=== PATIENT | female | born 1950 | race Caucasian/White ===

== ENCOUNTER 2022-06-10 13:52 | Inpatient (IN) | payer MEDICARE ==
[2022-06-10 17:10] LABS: Appearance,Urine Cloudy (Clear); Bacteria,Urine Occasional /hpf; Bilirubin,Urine Negative (Negative); Blood,Urine Negative (Negative); Color,Urine Yellow; Glucose,Urine (UA) Negative (Negative); Hyaline Casts,Urine 1 /lpf (0-2); Ketones,Urine 2+ (Negative); Leukocyte Esterase,Urine Moderate (Negative); Mucus,Urine Rare /hpf; Nitrite,Urine Negative (Negative); Protein,Urine 1+ (Negative); RBC,Urine 1 /hpf (0-5); Specific Gravity,Urine 1.027 (1.001-1.035); Squamous Epithelial Cell,Urine 8 /hpf (0-4); Urobilinogen,Urine <2.0 mg/dL (<2.0); WBC,Urine 16 /hpf (0-5)
[2022-06-10] MEDS ORDERED: MORPHINE SULFATE 4 MG/ML SYRINGE IV STA (18:56)
[2022-06-10] MEDS ORDERED: ONDANSETRON 4 MG/2 ML VIAL IVP STA (18:56)
[2022-06-10] MEDS ORDERED: SODIUM CHLORIDE 0.9% 1,000 ML IV STA (18:56)
--- NOTE | 2022-06-10 20:01 | ED ---
Abdominal Pain HPI - General Chief Complaint: Abdominal Pain Stated Complaint: ABD PAIN Time Seen by Provider: 06/10/22 18:49 Source: patient Mode of arrival: ambulatory Limitations: no limitations - History of Present Illness Initial Comments: Patient is a 71-year-old female presenting with chief complaint of abdominal pain. Patient has history of pancreatitis, states that this pain feels similar to previous episodes. Pain started last night, she attempted to just take Motrin at home and try not to eat or drink, however the pain has become intoler able. She admits to some nausea and no vomiting. No diarrhea, hematochezia, melena. No fever or chills. No chest pain or shortness of breath. No palpitations or weakness. - Related Data Allergies Allergy/AdvReac Type Severity Reaction Status Date / Time Latex, Natural Rubber Allergy Unknown Verified 06/10/22 15:15 Penicillins Allergy Unknown Verified 06/10/22 15:15 Review of Systems ROS Statement: Those systems with pertinent positive or pertinent negative responses have been documented in the HPI. ROS Other: All systems not noted in ROS Statement are negative. Past Medical History Past Medical History: Hyperlipidemia, Hypertension Additional Past Medical History / Comment(s): pancreatitis History of Any Multi-Drug Resistant Organisms: None Reported Past Surgical History: Appendectomy, Orthopedic Surgery Past Psychological History: No Psychological Hx Reported Smoking Status: Former smoker Past Alcohol Use History: Daily Past Drug Use History: None Reported General Exam Limitations: no limitations General appearance: alert, in no apparent distress Head exam: Present: atraumatic, normocephalic, normal inspection Eye exam: Present: normal appearance, EOMI. Absent: scleral icterus, periorbital swelling Neck exam: Present: normal inspection Respiratory exam: Present: normal lung sounds bilaterally. Absent: respiratory distress, wheezes, rales, rhonchi, stridor Cardiovascular Exam: Present: regular rate, normal rhythm, normal heart sounds. Absent: systolic murmur, diastolic murmur, rubs, gallop, clicks GI/Abdominal exam: Present: soft, tenderness, normal bowel sounds. Absent: distended, guarding, rebound, rigid Neurological exam: Present: alert, oriented X3, CN II-XII intact Psychiatric exam: Present: normal affect, normal mood Skin exam: Present: warm, dry, intact, normal color. Absent: rash Course Vital Signs 06/10/22 15:12 Temperature 97.8 F Pulse Rate 82 Respiratory 16 Rate Blood Pressure 153/97 O2 Sat by Pulse 94 L Oximetry Medical Decision Making - Medical Decision Making Patient is a 71-year-old female history of pancreatitis presenting with chief complaint of epigastric pain that began last night. On examination there is tenderness on palpation of the epigastric region. Lab work shows amylase of 585 and lipase of 2047. No leukocytosis or anemia. Coags are WNL. Electrolytes are WNL. CT shows mild fat stranding around the pancreatic head suggestive of pancreatitis. No dilated ducts. Urine shows moderate leukocytes, 16 WBC, 8 squamous epithelial cells with occasional bacteria. This may be contaminated, sent for culture, patient is not having any dysuria, hematuria, flank pain, urgency, frequency, fever, chills. I spoke with Dr. Dunne who agreed to admit the patient. I discussed this plan with the patient, she was agreeable. Have consulted GI. Discussed this case with my attending Dr. Bosch. - Lab Data Result diagrams: 06/10/22 20:40 06/10/22 20:40 Lab Results 06/10/22 06/10/22 06/10/22 Range/Units 15:16 20:40 20:40 WBC 8.9 (3.8-10.6) k/uL RBC 4.77 (3.80-5.40) m/uL Hgb 14.9 (11.4-16.0) gm/dL Hct 44.4 (34.0-46.0) % MCV 93.2 (80.0-100.0) fL MCH 31.3 (25.0-35.0) pg MCHC 33.5 (31.0-37.0) g/dL RDW 12.9 (11.5-15.5) % Plt Count 237 (150-450) k/uL MPV 7.5 Neutrophils % 70 % Lymphocytes % 18 % Monocytes % 7 % Eosinophils % 2 % Basophils % 1 % Neutrophils # 6.2 (1.3-7.7) k/uL Lymphocytes # 1.6 (1.0-4.8) k/uL Monocytes # 0.7 (0-1.0) k/uL Eosinophils # 0.1 (0-0.7) k/uL Basophils # 0.1 (0-0.2) k/uL PT 10.4 (9.0-12.0) sec INR 1.0 (<1.2) APTT 23.7 (22.0-30.0) sec Sodium (137-145) mmol/L Potassium (3.5-5.1) mmol/L Chloride (98-107) mmol/L Carbon Dioxide (22-30) mmol/L Anion Gap mmol/L BUN (7-17) mg/dL Creatinine (0.52-1.04) mg/dL Est GFR (CKD-EPI)AfAm (>60 ml/min/1.73 sqM) Est GFR (CKD-EPI)NonAf (>60 ml/min/1.73 sqM) Glucose (74-99) mg/dL Plasma Lactic Acid Noah (0.7-2.0) mmol/L Calcium (8.4-10.2) mg/dL Total Bilirubin (0.2-1.3) mg/dL AST (14-36) U/L ALT (4-34) U/L Alkaline Phosphatase (38-126) U/L Troponin I (0.000-0.034) ng/mL Total Protein (6.3-8.2) g/dL Albumin (3.5-5.0) g/dL Amylase (30-110) U/L Lipase (23-300) U/L Urine Color Yellow Urine Appearance Cloudy H (Clear) Urine pH 6.0 (5.0-8.0) Ur Specific [place] 1.027 (1.001-1.035) Urine Protein 1+ H (Negative) Urine Glucose (UA) Negative (Negative) Urine Ketones 2+ H (Negative) Urine Blood Negative (Negative) Urine Nitrite Negative (Negative) Urine Bilirubin Negative (Negative) Urine Urobilinogen <2.0 (<2.0) mg/dL Ur Leukocyte Esterase Moderate H (Negative) Urine RBC 1 (0-5) /hpf Urine WBC 16 H (0-5) /hpf Ur Squamous Epith Cells 8 H (0-4) /hpf Urine Bacteria Occasional H (None) /hpf Hyaline Casts 1 (0-2) /lpf Urine Mucus Rare H (None) /hpf 06/10/22 06/10/22 06/10/22 Range/Units 20:40 20:40 20:40 WBC (3.8-10.6) k/uL RBC (3.80-5.40) m/uL Hgb (11.4-16.0) gm/dL Hct (34.0-46.0) % MCV (80.0-100.0) fL MCH (25.0-35.0) pg MCHC (31.0-37.0) g/dL RDW (11.5-15.5) % Plt Count (150-450) k/uL MPV Neutrophils % % Lymphocytes % % Monocytes % % Eosinophils % % Basophils % % Neutrophils # (1.3-7.7) k/uL Lymphocytes # (1.0-4.8) k/uL Monocytes # (0-1.0) k/uL Eosinophils # (0-0.7) k/uL Basophils # (0-0.2) k/uL PT (9.0-12.0) sec INR (<1.2) APTT (22.0-30.0) sec Sodium 141 (137-145) mmol/L Potassium 3.9 (3.5-5.1) mmol/L Chloride 102 (98-107) mmol/L Carbon Dioxide 23 (22-30) mmol/L Anion Gap 16 mmol/L BUN 13 (7-17) mg/dL Creatinine 0.67 (0.52-1.04) mg/dL Est GFR (CKD-EPI)AfAm >90 (>60 ml/min/1.73 sqM) Est GFR (CKD-EPI)NonAf 89 (>60 ml/min/1.73 sqM) Glucose 87 (74-99) mg/dL Plasma Lactic Acid Noah 1.2 (0.7-2.0) mmol/L Calcium 9.2 (8.4-10.2) mg/dL Total Bilirubin 1.5 H (0.2-1.3) mg/dL AST 26 (14-36) U/L ALT 11 (4-34) U/L Alkaline Phosphatase 55 (38-126) U/L Troponin I <0.012 (0.000-0.034) ng/mL Total Protein 8.0 (6.3-8.2) g/dL Albumin 4.9 (3.5-5.0) g/dL Amylase 585 H* (30-110) U/L Lipase 2047 H (23-300) U/L Urine Color Urine Appearance (Clear) Urine pH (5.0-8.0) Ur Specific [place] (1.001-1.035) Urine Protein (Negative) Urine Glucose (UA) (Negative) Urine Ketones (Negative) Urine Blood (Negative) Urine Nitrite (Negative) Urine Bilirubin (Negative) Urine Urobilinogen (<2.0) mg/dL Ur Leukocyte Esterase (Negative) Urine RBC (0-5) /hpf Urine WBC (0-5) /hpf Ur Squamous Epith Cells (0-4) /hpf Urine Bacteria (None) /hpf Hyaline Casts (0-2) /lpf Urine Mucus (None) /hpf Disposition Clinical Impression: Pancreatitis Disposition: ADMITTED IP TO THIS [facility] Condition: Fair Time of Disposition: 22:40 Decision to Admit Reason: Admit from EC Decision Date: 06/10/22 Decision Time: 22:40
[2022-06-10] MEDS: LACTATED RINGERS 1,000 ML IV SCH ×2 (20:20→22:51)
[2022-06-10 21:20] LABS: Basophils # (A) 0.1 k/uL (0-0.2); Basophils % (A) 1 %; Eosinophils # (A) 0.1 k/uL (0-0.7); Eosinophils % (A) 2 %; HCT 44.4 % (34.0-46.0); HGB 14.9 gm/dL (11.4-16.0); Lymphocytes # (A) 1.6 k/uL (1.0-4.8); Lymphocytes % (A) 18 %; MCH 31.3 pg (25.0-35.0); MCHC 33.5 g/dL (31.0-37.0); MCV 93.2 fL (80.0-100.0); Mean Platelet Volume 7.5; Monocytes # (A) 0.7 k/uL (0-1.0); Monocytes % (A) 7 %; Neutrophils # (A) 6.2 k/uL (1.3-7.7); Neutrophils % (A) 70 %; Platelet Count 237 k/uL (150-450); RBC 4.77 m/uL (3.80-5.40); RDW 12.9 % (11.5-15.5); WBC 8.9 k/uL (3.8-10.6)
[2022-06-10 21:31] LABS: ALT 11 U/L (4-34); AST 26 U/L (14-36); African American GFR (CKD) >90 (>60 ml/min/1.73 sqM); Albumin 4.9 g/dL (3.5-5.0); Alkaline Phosphatase 55 U/L (38-126); Anion Gap 16 mmol/L; Blood Urea Nitrogen 13 mg/dL (7-17); Calcium 9.2 mg/dL (8.4-10.2); Carbon Dioxide 23 mmol/L (22-30); Chloride 102 mmol/L (98-107); Glucose 87 mg/dL (74-99); Non-African American GFR(CKD) 89 (>60 ml/min/1.73 sqM); Potassium 3.9 mmol/L (3.5-5.1); Sodium 141 mmol/L (137-145); Total Bilirubin 1.5 mg/dL (0.2-1.3)
[2022-06-10 21:34] LABS: Partial Thromboplastin Time 23.7 sec (22.0-30.0); Prothrombin Time 10.4 sec (9.0-12.0)
[2022-06-10 21:47] LABS: Amylase 585 U/L (30-110); Lipase 2047 U/L (23-300)
--- NOTE | 2022-06-10 22:34 | CT ---
EXAMINATION TYPE: CT abdomen pelvis w con DATE OF EXAM: 06/10/2022 COMPARISON: None HISTORY: Epigastric pain CT DLP: 1390.2 mGycm Automated exposure control for dose reduction was used. CONTRAST: Performed with IV Contrast, patient injected with 100cc mL of Isovue 300. Images obtained from the diaphragm to the floor the pelvis with IV contrast. Lung bases show some patchy atelectasis. No pleural effusion. Heart size is top normal. No pericardia l effusion. Liver and spleen are intact. The stomach is intact. No pancreatic mass. There is some minimal fat str anding around the head of the pancreas. The bile ducts are not dilated. Gallbladder appears normal. There is no adrenal mass. Kidneys show satisfactory contrast opacification. No hydronephrosis. Ureter s are not dilated. No retroperitoneal adenopathy. Abdominal aorta is atheromatous. Bladder distends s moothly. No inguinal hernia. No free fluid in the pelvis. No evidence of pelvic mass. Uterus is anteverted. There is no mesenteric edema. No ascites or free air. No sign of a bowel obstruction. Appendix not cl early seen. No significant appendix. The lumbar vertebrae have normal alignment. No compression fract ure. There is vacuum disc at L2-3 and L3-4. The bony pelvis is intact. The hip joints are intact. The re is hypertrophic acetabular spur formation and spurring on the femoral heads. IMPRESSION: There is some mild fat stranding around the pancreatic head suggestive of pancreatitis. No dilated du cts. Patchy atelectasis at the lung bases. Mild hip joint osteoarthritis.
[2022-06-10] MEDS ORDERED: NALOXONE 0.4 MG/ML 1 ML VIAL IV PRN (22:50)
[2022-06-10] MEDS: HYDROmorphone 1 MG/ML 1 ML SYRINGE IVP PRN (23:41)
[2022-06-11 05:45] LABS: Basophils % (A) 0 %; Eosinophils # (A) 0.1 k/uL (0-0.7); Eosinophils % (A) 1 %; HCT 39.7 % (34.0-46.0); Lymphocytes # (A) 0.9 k/uL (1.0-4.8); Lymphocytes % (A) 9 %; MCH 31.1 pg (25.0-35.0); MCHC 32.7 g/dL (31.0-37.0); MCV 95.1 fL (80.0-100.0); Mean Platelet Volume 7.4; Monocytes # (A) 0.8 k/uL (0-1.0); Monocytes % (A) 7 %; Neutrophils # (A) 8.3 k/uL (1.3-7.7); Neutrophils % (A) 81 %; Platelet Count 231 k/uL (150-450); RBC 4.18 m/uL (3.80-5.40); RDW 13.3 % (11.5-15.5); WBC 10.2 k/uL (3.8-10.6)
[2022-06-11 06:08] LABS: ALT 10 U/L (4-34); AST 22 U/L (14-36); African American GFR (CKD) >90 (>60 ml/min/1.73 sqM); Albumin 4.2 g/dL (3.5-5.0); Alkaline Phosphatase 49 U/L (38-126); Anion Gap 13 mmol/L; Blood Urea Nitrogen 11 mg/dL (7-17); Calcium 8.1 mg/dL (8.4-10.2); Carbon Dioxide 24 mmol/L (22-30); Chloride 103 mmol/L (98-107); Glucose 91 mg/dL (74-99); Lipase 679 U/L (23-300); Non-African American GFR(CKD) >90 (>60 ml/min/1.73 sqM); Potassium 4.1 mmol/L (3.5-5.1); Sodium 140 mmol/L (137-145); Total Bilirubin 1.3 mg/dL (0.2-1.3); Total Protein 6.7 g/dL (6.3-8.2)
[2022-06-11 06:20] LABS: Amylase 316 U/L (30-110)
[2022-06-11] MEDS: ONDANSETRON 4 MG/2 ML VIAL IVP PRN ×2 (07:01→18:12)
[2022-06-11] MEDS: LACTATED RINGERS 1,000 ML IV SCH ×10 (07:48→14:20)
[2022-06-11] MEDS ORDERED: METOCLOPRAMIDE 5 MG/ML 2 ML VIAL IVP STA (08:29)
[2022-06-11] MEDS ORDERED: ACETAMINOPHEN TAB 325 MG TAB PO STA (10:26)
[2022-06-11] MEDS: HYDROmorphone 1 MG/ML 1 ML SYRINGE IVP PRN ×3 (14:22→21:15)
--- NOTE | 2022-06-11 16:20 | P.CONS ---
History of Present Illness - Reason for Consult Consult date: 06/11/22 Pancreatitis Requesting physician: Wendy Saenz - Chief Complaint Epigastric, right upper quadrant pain - History of Present Illness This a pleasant 71-year-old female who presented to the emergency department with complaints of epigastric and right upper quadrant pain similar to her previous episode of pancreatitis. Pain started a couple days ago and is associated with nausea and vomiting. Patient states she had several episodes of dry heaves this morning. Patient rates pain about an 8 in the epigastric region. Patient first diagnosed in January 2021 with pancreatitis, states that she has pancreatic divisum. Initially she was following with Lars Lai however has switched over to Dr. Beauchamp. On presentation patient had a amylase of 585 now down to 316, lipase 2046 now down to 679. Patient states pain is just mildly improved. Nausea vomiting better since Zofran was added. Gastroenterology was consulted for acute pancreatitis. Patient denies any al cohol use, no new medications. Labs: WBC 10.2 hemoglobin 13 hematocrit 39 platelet count 231,000 INR 1.0 sodium 140 potassium 4.1 BUN 11 creatinine 0.6 total bilirubin 1.3 AST 22 ALT 10 alkaline phosphatase [address] abdomen and pelvis with IV contrast report some mild fat stranding around the pancreatic head suggestive of pancreatitis. No dilated ducts. Patchy atelectasis at the lung bases. Mild hip joint osteoarthritis Review of Systems REVIEW OF SYSTEMS: CARDIOPULMONARY: No chest pain or shortness of breath. Gastrointestinal: Burning epigastric and right upper quadrant pain, associated with nausea and vomiting. No hematemesis, coffee-ground emesis. No rectal bleeding, or melena. GENITOURINARY: No dysuria or hematuria. MUSCULOSKELETAL: Reports normal range of motion., Joint pain. SKIN: No rashes. No jaundice. ENDOCRINE: No chills, fevers. No excessive weight gain or loss. No polydipsia or polyuria. PSYCHIATRIC: Unremarkable. NEUROLOGY: No change in mental status. Denies dizziness, headache. ENT: Vision unremarkable. CONSTITUTIONAL: No recent weight loss. No fever, chills, night sweats. Past Medical History Past Medical History: Hyperlipidemia, Hypertension Additional Past Medical History / Comment(s): pancreatitis History of Any Multi-Drug Resistant Organisms: None Reported Past Surgical History: Appendectomy, Orthopedic Surgery Past Psychological History: No Psychological Hx Reported Smoking Status: Former smoker Past Alcohol Use History: Daily Past Drug Use History: None Reported Medications and Allergies Home Medications Medication Instructions Recorded Confirmed Type Alendronate Sodium [Fosamax] 70 mg PO TH 06/11/22 06/11/22 History Metoprolol Succinate (ER) [Toprol 50 mg PO DAILY 06/11/22 06/11/22 History Xl] Omeprazole 20 mg PO DAILY 06/11/22 06/11/22 History Simvastatin [Zocor] 40 mg PO HS 06/11/22 06/11/22 History Allergies Allergy/AdvReac Type Severity Reaction Status Date / Time Latex, Natural Rubber Allergy Unknown Verified 06/11/22 07:35 Penicillins Allergy Rash/Hives Verified 06/11/22 07:35 Physical Exam Vitals: Vital Signs Temp Pulse Resp BP Pulse Ox 06/11/22 10:19 16 06/11/22 09:10 98.2 F 68 16 135/69 98 06/11/22 02:15 69 14 95 06/10/22 23:40 80 16 140/82 94 L 06/10/22 15:12 97.8 F 82 16 153/97 94 L Intake and Output 06/10/22 06/11/22 06/11/22 22:59 06:59 14:59 Other: Weight 81.647 kg General appearance: The patient is alert, oriented, appears in no acute distress. HET: Head is normocephalic and atraumatic. Conjunctiva pink. Sclera anicteric. Neck: Supple without lymphadenopathy. Trachea midline. Heart: S1 S2. Regular rate and rhythm. Lungs: Clear to auscultation. Abdomen: Soft, right upper quadrant and epigastric moderate tenderness to palpation, nondistended with bowel sounds. No guarding or rigidity. Skin: No rashes. No jaundice. Extremities: Normal skin color and turgor. No pedal edema. Neurological: No focal deficits. Alert and oriented x3. Results CBC & Chem 7: 06/11/22 05:03 06/11/22 05:03 Labs: Abnormal Lab Results - Last 24 Hours (Table) 06/10/22 06/10/22 06/11/22 Range/Units 15:16 20:40 05:03 Neutrophils # 8.3 H (1.3-7.7) k/uL Lymphocytes # 0.9 L (1.0-4.8) k/uL Calcium (8.4-10.2) mg/dL Total Bilirubin 1.5 H (0.2-1.3) mg/dL Amylase 585 H* (30-110) U/L Lipase 2047 H (23-300) U/L Urine Appearance Cloudy H (Clear) Urine Protein 1+ H (Negative) Urine Ketones 2+ H (Negative) Ur Leukocyte Esterase Moderate H (Negative) Urine WBC 16 H (0-5) /hpf Ur Squamous Epith Cells 8 H (0-4) /hpf Urine Bacteria Occasional H (None) /hpf Urine Mucus Rare H (None) /hpf 06/11/22 Range/Units 05:03 Neutrophils # (1.3-7.7) k/uL Lymphocytes # (1.0-4.8) k/uL Calcium 8.1 L (8.4-10.2) mg/dL Total Bilirubin (0.2-1.3) mg/dL Amylase 316 H* (30-110) U/L Lipase 679 H (23-300) U/L Urine Appearance (Clear) Urine Protein (Negative) Urine Ketones (Negative) Ur Leukocyte Esterase (Negative) Urine WBC (0-5) /hpf Ur Squamous Epith Cells (0-4) /hpf Urine Bacteria (None) /hpf Urine Mucus (None) /hpf Microbiology - Last 24 Hours (Table) 06/10/22 15:16 Urine Culture - Preliminary Urine,Voided CT scan - abdomen: report reviewed Assessment and Plan (1) Pancreatitis Narrative/Plan: 71-year-old female who presented to the emergency department with the severe epigastric right upper quadrant pain associated with nausea vomiting with a hi story of pancreatitis diagnosed in January 2021. Patient came in for increased pain nausea and vomiting. First diagnosed with pancreatitis in January 2021 seen at [facility] at that time. She was told that it was due to pancreatic divisum. She has not had any further episodes until this presentation. She denies any history of alcohol abuse, no new medications. Now following with Dr. Beauchamp in the outpatient setting. Pancreatitis likely related to pancreatic divisum. Continue heavy hydration, pain medication and antiemetics. Current Visit: Yes Status: Acute Code(s): K85.90 - ACUTE PANCREATITIS WITHOUT NECROSIS OR INFECTION, UNSP SNOMED Code(s): 23290151 Plan: 1. Continue symptomatic and supportive care 2. Heavy IV hydration 3. Nothing by mouth with ice chips 4. Continue pain management 5. Antiemetics as needed 6. Daily CMP, lipase 7. Encourage ambulation 8. Protonix for GI prophylaxis Thank you for this consultation, we will continue to follow. Dr. Marcella Beauchamp I agree with the dictator's note, documented as a scribe by Priscilla Pérez.
[2022-06-11] MEDS ORDERED: TRIMETHOBENZAMIDE 100 MG/ML 2 ML VIAL IM PRN (16:39)
--- NOTE | 2022-06-11 16:43 | P.HPIM ---
History of Present Illness H&P Date: 06/11/22 This is a 71 year old female with medical history of hypertension, hyperlipidemia, former smoker. She does report drinking a few beers occasionally during the week. She had an episode of pancreatitis in January of 2021 and was told it was pancreatic divisum. She reports drinking a few shots of tequila last night. She began having significant abdominal pain epigastric and reports band like radiation around to the back. On admission total bili was found to be 1.5 which has improved to 1.3. Amylase elevated at 585, lipase 2046 which is improving with IV hydration and NPO diet. Will monitor amylase and lipase trends and continue with pain management and antiemetics. She did require dose of reglan this morning in addition to zofran which she states helped. On follow up with family at bedside patient denies alcohol use. Patient had CT abdomen which shows mild fat stranding around pancreatic head, GI services has been placed on consultation for further recommendations. REVIEW OF SYSTEMS: CONSTITUTIONAL: No fever, no malaise, no fatigue. HEENT: No recent visual problems or hearing problems. Denied any sore throat. CARDIOVASCULAR: No chest pain, orthopnea, PND, no palpitations, no syncope. PULMONARY: No shortness of breath, no cough, no hemoptysis. GASTROINTESTINAL: No diarrhea, reports nausea and vomiting. Reports epigastric abdominal pain with radiation around to the back. Rating 5/10. NEUROLOGICAL: No headaches, no weakness, no numbness. HEMATOLOGICAL: Denies any bleeding or petechiae. GENITOURINARY: Denies any burning micturition, frequency, or urgency. MUSCULOSKELETAL/RHEUMATOLOGICAL: Denies any joint pain, swelling, or any muscle pain. ENDOCRINE: Denies any polyuria or polydipsia. The rest of the 14-point review of systems is negative. PHYSICAL EXAMINATION: GENERAL: The patient is alert and oriented x3, not in any acute distress. Well developed, well nourished. HEENT: Pupils are round and equally reacting to light. EOMI. No scleral icterus. No conjunctival pallor. Normocephalic, atraumatic. No pharyngeal erythema. No thyromegaly. CARDIOVASCULAR: S1 and S2 present. No murmurs, rubs, or gallops. PULMONARY: Chest is clear to auscultation, no wheezing or crackles. ABDOMEN: Soft, tender, nondistended, normoactive bowel sounds. No palpable organomegaly. MUSCULOSKELETAL: No joint swelling or deformity. EXTREMITIES: No cyanosis, clubbing, or pedal edema. NEUROLOGICAL: Gross neurological examination did not reveal any focal deficits. SKIN: No rashes. Assessment and Plan Assessment Acute pancreatitis possibly pancreatic divisum Hyperlipidemia Hypertension History pancreatitis from pancreatic divisum Questionable alcohol use GI Prophylaxis DVT Prophylaxis Full Code Plan Continue IV hydration NPO diet with ice chips Repeat CMP in AM GI services Continue with pain management and antiemetics The impression and plan of care has been dictated by [place] Nurse Practitioner as directed. Dr. Erick MD I have performed a history and physical examination and medical decision making of this patient, discussed the same with the dictator, and agree with the dictators assessment and plan as written, documented as a scribe. Based on total visit time, I have performed more than 50% of this visit. Past Medical History Past Medical History: Hyperlipidemia, Hypertension Additional Past Medical History / Comment(s): pancreatitis History of Any Multi-Drug Resistant Organisms: None Reported Past Surgical History: Appendectomy, Orthopedic Surgery Past Psychological History: No Psychological Hx Reported Smoking Status: Former smoker Past Alcohol Use History: Daily Past Drug Use History: None Reported Medications and Allergies Home Medications Medication Instructions Recorded Confirmed Type Alendronate Sodium [Fosamax] 70 mg PO TH 06/11/22 06/11/22 History Metoprolol Succinate (ER) [Toprol 50 mg PO DAILY 06/11/22 06/11/22 History Xl] Omeprazole 20 mg PO DAILY 06/11/22 06/11/22 History Simvastatin [Zocor] 40 mg PO HS 06/11/22 06/11/22 History Allergies Allergy/AdvReac Type Severity Reaction Status Date / Time Latex, Natural Rubber Allergy Unknown Verified 06/11/22 07:35 Penicillins Allergy Rash/Hives Verified 06/11/22 07:35 Physical Exam Vitals: Vital Signs Temp Pulse Resp BP Pulse Ox 06/11/22 10:19 16 06/11/22 09:10 98.2 F 68 16 135/69 98 06/11/22 02:15 69 14 95 06/10/22 23:40 80 16 140/82 94 L 06/10/22 15:12 97.8 F 82 16 153/97 94 L Intake and Output 06/10/22 06/11/22 06/11/22 22:59 06:59 14:59 Other: Weight 81.647 kg Results CBC & Chem 7: 06/11/22 05:03 06/11/22 05:03 Labs: Abnormal Lab Results - Last 24 Hours (Table) 06/10/22 06/10/22 06/11/22 Range/Units 15:16 20:40 05:03 Neutrophils # 8.3 H (1.3-7.7) k/uL Lymphocytes # 0.9 L (1.0-4.8) k/uL Calcium (8.4-10.2) mg/dL Total Bilirubin 1.5 H (0.2-1.3) mg/dL Amylase 585 H* (30-110) U/L Lipase 2047 H (23-300) U/L Urine Appearance Cloudy H (Clear) Urine Protein 1+ H (Negative) Urine Ketones 2+ H (Negative) Ur Leukocyte Esterase Moderate H (Negative) Urine WBC 16 H (0-5) /hpf Ur Squamous Epith Cells 8 H (0-4) /hpf Urine Bacteria Occasional H (None) /hpf Urine Mucus Rare H (None) /hpf 06/11/22 Range/Units 05:03 Neutrophils # (1.3-7.7) k/uL Lymphocytes # (1.0-4.8) k/uL Calcium 8.1 L (8.4-10.2) mg/dL Total Bilirubin (0.2-1.3) mg/dL Amylase 316 H* (30-110) U/L Lipase 679 H (23-300) U/L Urine Appearance (Clear) Urine Protein (Negative) Urine Ketones (Negative) Ur Leukocyte Esterase (Negative) Urine WBC (0-5) /hpf Ur Squamous Epith Cells (0-4) /hpf Urine Bacteria (None) /hpf Urine Mucus (None) /hpf Microbiology - Last 24 Hours (Table) 06/10/22 15:16 Urine Culture - Preliminary Urine,Voided Assessment and Plan Time with Patient: Less than 30
[2022-06-11] MEDS: ATORVASTATIN 20 MG TAB PO SCH (21:13)
[2022-06-12] MEDS: ONDANSETRON 4 MG/2 ML VIAL IVP PRN ×2 (02:03→09:59)
[2022-06-12] MEDS: HYDROmorphone 1 MG/ML 1 ML SYRINGE IVP PRN ×2 (02:04→06:13)
[2022-06-12] MEDS: LACTATED RINGERS 1,000 ML IV SCH (04:59)
[2022-06-12] MEDS: PANTOPRAZOLE 40 MG/10 ML VIAL IVP SCH (08:57)
[2022-06-12] MEDS: METOPROLOL SUCCINATE (ER) 50 MG TAB.ER.24H PO SCH (08:58)
[2022-06-12] MEDS ORDERED: PANTOPRAZOLE 40 MG TABLET PO SCH (09:00)
[2022-06-12 10:37] LABS: Basophils # (A) 0.02 X 10*3/uL (0.00-0.10); Basophils % (A) 0.2 %; Eosinophils # (A) 0.01 X 10*3/uL (0.04-0.35); Eosinophils % (A) 0.1 %; HCT 35.6 % (37.2-46.3); HGB 11.7 g/dL (12.0-15.0); Immature Grans, Automated 0.5 %; Lymphocytes # (A) 1.09 X 10*3/uL (0.90-5.00); Lymphocytes % (A) 11.7 %; MCH 31.1 pg (27.0-32.0); MCHC 32.9 g/dL (32.0-37.0); MCV 94.7 fL (80.0-97.0); Mean Platelet Volume 10.5 fL (9.5-12.2); Monocytes # (A) 0.88 X 10*3/uL (0.20-1.00); Monocytes % (A) 9.4 %; NRBC Per 100 WBC 0 /100 WBCS (0.0-0.0); Neutrophils # (A) 7.27 X 10*3/uL (1.80-7.70); Neutrophils % (A) 78.1 %; Platelet Count 205 X 10*3/uL (140-440); RBC 3.76 X 10*6/uL (4.10-5.20); RDW 12.9 % (11.5-14.5); WBC 9.32 X 10*3/uL (4.50-10.00)
[2022-06-12 11:01] LABS: Amylase 105 U/L (23-121); Lipase 73 U/L (14-63)
[2022-06-12] MEDS: KETOROLAC 15 MG/ML 1 ML VIAL IVP SCH ×3 (11:42→23:29)
[2022-06-12 12:02] VITALS: RESP 16
--- NOTE | 2022-06-12 14:36 | XR ---
EXAMINATION TYPE: XR chest 2V DATE OF EXAM: 06/12/2022 2:23 PM COMPARISON: CT abdomen pelvis 06/10/2022 TECHNIQUE: XR chest 2V Frontal and lateral views of the chest. CLINICAL INDICATION:Female, 71 years old with history of dyspnea; FINDINGS: Lungs/Pleura: Bibasilar atelectasis. No evidence for pneumothorax pleural effusion or focal consolida tion. Pulmonary vascularity: Unremarkable. Heart/mediastinum: Cardiomediastinal silhouette is unremarkable. Musculoskeletal: No acute osseous pathology. IMPRESSION: 1. No acute cardiopulmonary disease/process. 2. Bibasilar streaky atelectasis
[2022-06-12] MEDS ORDERED: SODIUM CHLORIDE 0.65% NASAL SPRAY 44 ML BTL NASAL PRN (15:03)
--- NOTE | 2022-06-12 15:07 | P.PN ---
Subjective Progress Note Date: 06/12/22 This is a 71 year old female with medical history of hypertension, hyperlipidemia, former smoker. She does report drinking a few beers occasionally during the week. She had an episode of pancreatitis in January of 2021 and was told it was pancreatic divisum. She reports drinking a few shots of tequila last nig ht. She began having significant abdominal pain epigastric and reports band like radiation around to the back. On admission total bili was found to be 1.5 which has improved to 1.3. Amylase elevated at 585, lipase 2046 which is improving with IV hydration and NPO diet. Will monitor amylase and lipase trends and continue with pain management and antiemetics. She did require dose of reglan this morning in addition to zofran which she states helped. On follow up with family at bedside patient denies alcohol use. Patient had CT abdomen which shows mild fat stranding around pancreatic head, GI services has been placed on consultation for further recommendations. 06/12/2022 Patient is resting in bed today. Overall her abdominal pain has improved, she does not have much appetite though. She reports some frontal headache which is where she is having the most pain today and also some nasal congestion. She takes claritin OTC at home usually. She is requiring nasal cannula 2 to 3 L, which chest xray was taken showing bibasilar streaky atelectasis. Will order an IS and increase acitivty level. Amylase is 105, lipase 73 today. Patient has been started on clear liquid diet. Urine culture negative. She is afebrile, heart rate 98, blood pressure 156/80, 98% oxygen. Review of Systems Constitutional: Reports fatigue, denied any fever. Cardio vascular: denied any chest pain, palpitations Gastrointestinal: Reports nausea, no vomiting, no BM Pulmonary: Denied any shortness of breath cough Neurologic denied any new focal deficits All inpatient medications were reviewed and appropriate changes in these medications as dictated in the interval history and assessment and plan. PHYSICAL EXAMINATION: GENERAL: The patient is alert and oriented x3, not in any acute distress. Well developed, well nourished. HEENT: Pupils are round and equally reacting to light. EOMI. No scleral icterus. No conjunctival pallor. Normocephalic, atraumatic. No pharyngeal erythema. No thyromegaly. CARDIOVASCULAR: S1 and S2 present. No murmurs, rubs, or gallops. PULMONARY: Chest is clear to auscultation, no wheezing or crackles. ABDOMEN: Soft, mild epigastric tender, nondistended, Hypoactive bowel sounds. No palpable organomegaly. MUSCULOSKELETAL: No joint swelling or deformity. EXTREMITIES: No cyanosis, clubbing, or pedal edema. NEUROLOGICAL: Gross neurological examination did not reveal any focal deficits. SKIN: No rashes. Assessment and Plan Assessment Acute pancreatitis possibly pancreatic divisum Hyperlipidemia Hypertension History pancreatitis from pancreatic divisum Questionable alcohol use GI Prophylaxis DVT Prophylaxis Full Code Plan Stop IV fluids Clear liquid diet per GI Continue with pain management and antiemetics Incentive spirometer ordered Increase activity level Possible DC in the next 24 hours pending diet tolerance, wean oxygen as tolerated. The impression and plan of care has been dictated by Sierra Costa, Nurse Practitioner as directed. Dr. Erick MD I have performed a history and physical examination and medical decision making of this patient, discussed the same with the dictator, and agree with the dictators assessment and plan as written, documented as a scribe. Based on total visit time, I have performed more than 50% of this visit. Objective - Vital Signs Vital signs: Vital Signs Temp 98.2 F 06/12/22 11:42 Pulse 98 06/12/22 11:42 Resp 16 06/12/22 11:42 BP 156/80 06/12/22 11:42 Pulse Ox 98 06/12/22 11:42 FiO2 Intake & Output 06/11/22 06/12/22 06/12/22 18:59 06:59 18:59 Intake Total 0 Balance 0 Weight 81.647 kg Intake: Oral 0 Other: Voiding Method Toilet # Voids 2 - Labs CBC & Chem 7: 06/12/22 06:20 06/11/22 05:03 Labs: Abnormal Lab Results - Last 24 Hours (Table) 06/12/22 06/12/22 Range/Units 06:20 06:20 RBC 3.76 L (4.10-5.20) X 10*6/uL Hgb 11.7 L (12.0-15.0) g/dL Hct 35.6 L (37.2-46.3) % Immature Gran # 0.05 H (0.00-0.04) X 10*3/uL Eosinophils # 0.01 L (0.04-0.35) X 10*3/uL Lipase 73 H (14-63) U/L Microbiology - Last 24 Hours (Table) 06/10/22 15:16 Urine Culture - Final Urine,Voided Assessment and Plan Time with Patient: Less than 30
--- NOTE | 2022-06-12 15:21 | P.PN ---
Subjective Progress Note Date: 06/12/22 Principal diagnosis: Pancreatitis This a pleasant 71-year-old female who presented to the emergency department with complaints of epigastric and right upper quadrant pain similar to her previous episode of pancreatitis. Pain started a couple days ago and is associated with nausea and vomiting. Patient states she had several episodes of dry heaves this morning. Patient rates pain about an 8 in the epigastric region. Patient first diagnosed in January 2021 with pancreatitis, states that she has pancreatic divisum. Initially she was following with Lars Lai however has switched over to Dr. Beauchamp. On presentation patient had a amylase of 585 now down to 316, lipase 2046 now down to 679. Patient states pain is just mildly improved. Nausea vomiting better since Zofran was added. Gastroenterology was consulted for acute pancreatitis. Patient denies any alcohol use, no new medications. 06/12/2022: Patient seen and examined as a follow-up for her pancreatitis. P atient states pain has improved from an 8 to a 5 today. Still having some nausea and vomiting she believes it's mostly related to her pain medication. She is tolerating these chips. Today's repeat lipase is 73 down from 679 Objective - Vital Signs Vital signs: Vital Signs Temp 98.1 F 06/12/22 07:20 Pulse 76 06/12/22 07:20 Resp 17 06/12/22 07:20 BP 131/79 06/12/22 07:20 Pulse Ox 94 L 06/12/22 07:20 FiO2 Intake & Output 06/11/22 06/12/22 06/12/22 18:59 06:59 18:59 Intake Total 0 Balance 0 Weight 81.647 kg Intake: Oral 0 Other: Voiding Method Toilet # Voids 2 - Exam General appearance: The patient is alert, oriented, appears in no acute distress. HET: Head is normocephalic and atraumatic. Conjunctiva pink. Sclera anicteric. Neck: Supple without lymphadenopathy. Abdomen: Soft, tender to palpation in the epigastric region however has significantly improved. Abdomen nondistended with bowel sounds. No guarding or rigidity. Extremities: Normal skin color and turgor. No pedal edema Skin: No rashes, no jaundice Neurological: No focal deficits. Alert and oriented x3 - Labs CBC & Chem 7: 06/12/22 06:20 06/11/22 05:03 Labs: Abnormal Lab Results - Last 24 Hours (Table) 06/12/22 Range/Units 06:20 RBC 3.76 L (4.10-5.20) X 10*6/uL Hgb 11.7 L (12.0-15.0) g/dL Hct 35.6 L (37.2-46.3) % Immature Gran # 0.05 H (0.00-0.04) X 10*3/uL Eosinophils # 0.01 L (0.04-0.35) X 10*3/uL Microbiology - Last 24 Hours (Table) 06/10/22 15:16 Urine Culture - Final Urine,Voided Assessment and Plan (1) Pancreatitis Narrative/Plan: 71-year-old female who presented to the emergency department with the severe epigastric right upper quadrant pain associated with nausea vomiting with a history of pancreatitis diagnosed in January 2021. Patient came in for increased pain nausea and vomiting. First diagnosed with pancreatitis in January 2021 seen at [facility] at that time. She was told that it was due to pancreatic divisum. She has not had any further episodes until this presentation. She denies any history of alcohol abuse, no new medications. Now following with Dr. Beauchamp in the outpatient setting. Pancreatitis likely related to pancreatic divisum. Continue heavy hydration, pain medication and antiemetics. Current Visit: Yes Status: Acute Code(s): K85.90 - ACUTE PANCREATITIS WITHOUT NECROSIS OR INFECTION, UNSP SNOMED Code(s): 47371568 Plan: 1. Continue symptomatic and supportive care 2. Advance to clear liquid diet, advance diet as tolerated 3. Continue pain management, will add Toradol 4. Antiemetics as needed 5. Encourage ambulation 6. Protonix for GI prophylaxis Anticipate discharge in the next 24 hours. Thank you for this consultation, we will continue to follow. Dr. Marcella Beauchamp I agree with the dictator's note, documented as a scribe by Priscilla Pérez.
[2022-06-12] MEDS: LORATADINE 10 MG TAB PO SCH (15:30)
[2022-06-12] MEDS: ATORVASTATIN 20 MG TAB PO SCH (22:13)
[2022-06-12] MEDS: HEPARIN SODIUM,PORCINE/PF 5,000 UNIT/0.5 ML SYRINGE SQ SCH (22:13)
[2022-06-12] MEDS ORDERED: MELATONIN 3 MG TABLET PO SCH (22:30)
[2022-06-13] MEDS: KETOROLAC 15 MG/ML 1 ML VIAL IVP SCH (06:14)
[2022-06-13] MEDS: METOPROLOL SUCCINATE (ER) 50 MG TAB.ER.24H PO SCH (08:42)
[2022-06-13] MEDS: LORATADINE 10 MG TAB PO SCH (08:42)
[2022-06-13] MEDS: HEPARIN SODIUM,PORCINE/PF 5,000 UNIT/0.5 ML SYRINGE SQ SCH (08:42)
[2022-06-13] MEDS: PANTOPRAZOLE 40 MG/10 ML VIAL IVP SCH (08:43)
[2022-06-13 09:18] LABS: Basophils # (A) 0.06 X 10*3/uL (0.00-0.10); Eosinophils # (A) 0.22 X 10*3/uL (0.04-0.35); Eosinophils % (A) 3.5 %; HCT 33.2 % (37.2-46.3); HGB 11.4 g/dL (12.0-15.0); Immature Grans, Automated 0.3 %; Lymphocytes # (A) 1.38 X 10*3/uL (0.90-5.00); Lymphocytes % (A) 22.1 %; MCH 31.5 pg (27.0-32.0); MCHC 34.3 g/dL (32.0-37.0); MCV 91.7 fL (80.0-97.0); Mean Platelet Volume 10.3 fL (9.5-12.2); Monocytes # (A) 0.84 X 10*3/uL (0.20-1.00); Monocytes % (A) 13.5 %; NRBC Per 100 WBC 0 /100 WBCS (0.0-0.0); Neutrophils # (A) 3.72 X 10*3/uL (1.80-7.70); Neutrophils % (A) 59.6 %; Platelet Count 191 X 10*3/uL (140-440); RBC 3.62 X 10*6/uL (4.10-5.20); RDW 12.6 % (11.5-14.5); WBC 6.24 X 10*3/uL (4.50-10.00)
[2022-06-13 09:22] LABS: African American GFR (CKD) 106.3 (60.0-200.0); Anion Gap 10.1 mmol/L (10.00-18.00); BUN/Creat Ratio 12.5 Ratio (12.00-20.00); Blood Urea Nitrogen 7.5 mg/dL (9.0-27.0); Calcium 8.4 mg/dL (8.7-10.3); Carbon Dioxide 27.9 mmol/L (20.0-27.5); Non-African American GFR(CKD) 91.7 (60.0-200.0); Potassium 3.9 mmol/L (3.5-5.5)
--- NOTE | 2022-06-13 09:40 | P.PN ---
Subjective Progress Note Date: 06/13/22 Principal diagnosis: Pancreatitis This a pleasant 71-year-old female who presented to the emergency department with complaints of epigastric and right upper quadrant pain similar to her previous episode of pancreatitis. Pain started a couple days ago and is associated with nausea and vomiting. Patient states she had several episodes of dry heaves this morning. Patient rates pain about an 8 in the epigastric region. Patient first diagnosed in January 2021 with pancreatitis, states that she has pancreatic divisum. Initially she was following with Lars Lai however has switched over to Dr. Beauchamp. On presentation patient had a amylase of 585 now down to 316, lipase 2046 now down to 679. Patient states pain is just mildly improved. Nausea vomiting better since Zofran was added. Gastroenterology was consulted for acute pancreatitis. Patient denies any alcohol use, no new medications. 06/12/2022: Patient seen and examined as a follow-up for her pancreatitis. P atient states pain has improved from an 8 to a 5 today. Still having some nausea and vomiting she believes it's mostly related to her pain medication. She is tolerating these chips. Today's repeat lipase is 73 down from 679 06/13/2022: Patient seen and evaluated for follow-up of acute pancreatitis. Pain continues to improve. Today she states it is a 3 out of 5. She denies any nausea or vomiting. She is still complaining of a headache. Also states she's been requiring oxygen at night. Denies any previous history of COPD, is a former smoker about 40 years ago for 10 years. The patient is stating that she is having some heartburn. She takes omeprazole at home and will resume. Denies any bowel movements. Objective - Vital Signs Vital signs: Vital Signs Temp 98.2 F 06/13/22 05:00 Pulse 75 06/13/22 05:00 Resp 16 06/13/22 05:00 BP 123/63 06/13/22 05:00 Pulse Ox 95 06/13/22 05:00 FiO2 Intake & Output 06/12/22 06/13/22 06/13/22 18:59 06:59 18:59 Intake Total 600 900 Balance 600 900 Intake: Intake, IV Titration 600 900 Amount Lactated Ringers 1,000 ml 600 900 @ 75 mls/hr IV .[id number] [facility] Rx#:[id number] Other: Voiding Method Toilet # Voids 2 - Exam General appearance: The patient is alert, oriented, appears in no acute distress. HET: Head is normocephalic and atraumatic. Conjunctiva pink. Sclera anicteric. Neck: Supple without lymphadenopathy. Abdomen: Soft, nontender. Abdomen nondistended with bowel sounds. No guarding or rigidity. Extremities: Normal skin color and turgor. No pedal edema Skin: No rashes, no jaundice Neurological: No focal deficits. Alert and oriented x3 - Labs CBC & Chem 7: 06/13/22 05:47 06/13/22 05:47 Labs: Abnormal Lab Results - Last 24 Hours (Table) 06/12/22 06/12/22 06/13/22 Range/Units 06:20 06:20 05:47 RBC 3.76 L 3.62 L (4.10-5.20) X 10*6/uL Hgb 11.7 L 11.4 L (12.0-15.0) g/dL Hct 35.6 L 33.2 L (37.2-46.3) % Immature Gran # 0.05 H (0.00-0.04) X 10*3/uL Eosinophils # 0.01 L (0.04-0.35) X 10*3/uL Carbon Dioxide (20.0-27.5) mmol/L BUN (9.0-27.0) mg/dL Calcium (8.7-10.3) mg/dL Lipase 73 H (14-63) U/L 06/13/22 Range/Units 05:47 RBC (4.10-5.20) X 10*6/uL Hgb (12.0-15.0) g/dL Hct (37.2-46.3) % Immature Gran # (0.00-0.04) X 10*3/uL Eosinophils # (0.04-0.35) X 10*3/uL Carbon Dioxide 27.9 H (20.0-27.5) mmol/L BUN 7.5 L (9.0-27.0) mg/dL Calcium 8.4 L (8.7-10.3) mg/dL Lipase (14-63) U/L Assessment and Plan (1) Pancreatitis Narrative/Plan: 71-year-old female who presented to the emergency department with the severe epigastric right upper quadrant pain associated with nausea vomiting with a history of pancreatitis diagnosed in January 2021. Patient came in for increased pain nausea and vomiting. First diagnosed with pancreatitis in January 2021 seen at [facility] at that time. She was told that it was due to pancreatic divisum. She has not had any further episodes until this presentation. She denies any history of alcohol abuse, no new medications. Now following with Dr. Beauchamp in the outpatient setting. Pancreatitis likely related to pancreatic divisum. Continue heavy hydration, pain medication and antiemetics. Lipase has significantly improved over last 3 days duration. Abdominal pain improved as well. Advancing diet as tolerated and plan is for discharge home this afternoon. Current Visit: Yes Status: Acute Code(s): K85.90 - ACUTE PANCREATITIS WITHOUT NECROSIS OR INFECTION, UNSP SNOMED Code(s): 56775299 Plan: 1. Continue symptomatic and supportive care 2. Advance to low-fat, low fiber diet for lunch 3. Continue pain management 4. Antiemetics as needed 5. Encourage ambulation 6. Protonix for GI prophylaxis 7. Recommend outpatient follow-up with gastroenterology Thank you for this consultation, patient is cleared for discharge if she is able to tolerate her lunch. We will sign off at this time. Dr. Marcella Beauchamp I agree with the dictator's note, documented as a scribe by Priscilla Pérez.
[2022-06-13 11:50] VITALS: BP 147/87; PULSE 71; TEMP 97.9
--- NOTE | 2022-06-14 16:30 | P.DS ---
Providers Date of admission: 06/10/22 22:39 Attending physician: Luis Dunne MD Consults: 06/10/22 22:50 Consult Physician Urgent Consulting Provider: Eva Beauchamp Consult Reason/Comments: Pancreatitis Do you want consulting provider notified?: Yes Primary care physician: Kevin Reno [facility] Course: Diagnosis Acute pancreatitis possibly pancreatic divisum Hyperlipidemia Hypertension History pancreatitis from pancreatic divisum Questionable alcohol use Full Code Discharge Disposition Patient is stable for discharge. She has been tolerating diet. Cleared by GI services. She has also been weaned off oxygen to room air. Instructed to continue with incentive spirometer and also to increase activity level. She will continue on omeprazole daily. Hospital Course This is a 71 year old female with medical history of hypertension, hyperlipidemia, former smoker. She does report drinking a few beers occasionally during the week. She had an episode of pancreatitis in January of 2021 and was told it was pancreatic divisum. She reports drinking a few shots of tequila last night. She began having significant abdominal pain epigastric and reports band like radiation around to the back. On admission total bili was found to be 1.5 which has improved to 1.3. Amylase elevated at 585, lipase 2046 which is improving with IV hydration and NPO diet. Will monitor amylase and lipase trends and continue with pain management and antiemetics. She did require dose of reglan this morning in addition to zofran which she states helped. On follow up with family at bedside patient denies alcohol use. Patient had CT abdomen which shows mild fat stranding around pancreatic head. GI services has evaluated and followed up patient felt this was probably pancreatic divisum and has started patient on diet. She has tolerated clear liquids and advanced diet. She did complain of headache which improved with anti histamine and pain medication. She was requiring 2 L nasal cannula and had chest xray taken which shows no acute cardiopulmonary disease process and bibasilar streaky atelectasis. She has no shortness of breath and lungs are clear. She is up ambulating without difficulty, she would like to be discharged home today. 06/13/2022 Patient is evaluated today ambulating around room. No chest pain, no shortness of breath. Reports epigastric abdominal pain 2/10 intermittently and states she does feel hungry and is tolerating some diet. Her labs have improved amylase is 105 and lipase is 73. Sodium 141, potassium 3.9, BUN 7.5, creatinine 0.6. Hgb 11.4 stable. Urine culture is negative and she denies dysuria. Lungs are clear, S1 S2 auscultated abdomen is soft and nontender. Focal neurological exam is negative. No lower extremity edema. She has normoactive bowel sounds. She is being discharged to continue on omeprazole daily. Instructed to follow low fat/soft diet and avoid all alcohol. She will follow up with Dr Beauchamp in the office. Also recommended to see her primary care in 1 to 2 days. Repeat labs are given. Please see medication reconciliation for a list of current medication. Thank you for allowing us to participate in the care of this patient. The impression and plan of care has been dictated by Sierra Costa, Nurse Practitioner as directed. Dr. Erick MD I have performed a history and physical examination and medical decision making of this patient, discussed the same with the dictator, and agree with the dictators assessment and plan as written, documented as a scribe. Based on total visit time, I have performed more than 50% of this visit. Patient Condition at Discharge: Fair Plan - Discharge Summary New Discharge Prescriptions: New Ondansetron Odt [Zofran Odt] 4 mg PO Q8HR PRN 2 Days #6 tab PRN Reason: Nausea Loratadine [Claritin] 10 mg PO DAILY tab Sodium Chloride 0.65% Nasal [Deep Sea (Saline)] 2 spray NASAL QID PRN ml PRN Reason: Dry Nasal Passages traMADol HCl [Ultram] 50 mg PO Q6HR PRN 3 Days #12 tab PRN Reason: Pain Continue Omeprazole 20 mg PO DAILY Metoprolol Succinate (ER) [Toprol XL] 50 mg PO DAILY Alendronate Sodium [Fosamax] 70 mg PO TH Simvastatin [Zocor] 40 mg PO HS Discharge Medication List Alendronate Sodium [Fosamax] 70 mg PO TH 06/11/22 [History] Metoprolol Succinate (ER) [Toprol XL] 50 mg PO DAILY 06/11/22 [History] Omeprazole 20 mg PO DAILY 06/11/22 [History] Simvastatin [Zocor] 40 mg PO HS 06/11/22 [History] Loratadine [Claritin] 10 mg PO DAILY tab 06/13/22 [Rx] Ondansetron Odt [Zofran Odt] 4 mg PO Q8HR PRN 2 Days #6 tab 06/13/22 [Rx] Sodium Chloride 0.65% Nasal [Deep Sea (Saline)] 2 spray NASAL QID PRN ml 06/13/22 [Rx] traMADol HCl [Ultram] 50 mg PO Q6HR PRN 3 Days #12 tab 06/13/22 [Rx] Follow up Appointment(s)/Referral(s): Kevin Reno MD [Primary Care Provider] - 1-2 days (The office is requesting you to call to make the appointment.) Eva Beauchamp MD [STAFF PHYSICIAN] - 07/23/22 1:00 pm (This is the earliest date they could get you in they are putting you on the cancellation list and will call if there is an earlier appointment.) Ambulatory/Diagnostic Orders: Basic Metabolic Panel [LAB.AMB] Time Frame: 3 Days, Location: None Selected Patient Instructions/Handouts: Pancreatitis (DC), Low Fat Diet (DC) Activity/Diet/Wound Care/Special Instructions: Increase activity as tolerated Continue to use incentive spirometer 10 times an hour Increase diet as tolerated clear to full liquid Once tolerating diet recommend soft/low fat diet Avoid alcohol Discharge Disposition: HOME SELF-CARE
== END 2022-06-13 13:04 | disposition home or self-care (01) | DRG 439 ==
LOC: EC 13:52 → 5NMEDONC 22:39
PROVIDERS: ADMIT Internal Medicine; ATTEND Internal Medicine
DX: K85.80 Other acute pancreatitis without necrosis or infection (principal); Q45.3 Other congenital malformations of pancreas and pancreatic duct; E78.5 Hyperlipidemia, unspecified; I10 Essential (primary) hypertension; Z79.83 Long term (current) use of bisphosphonates; Z79.899 Other long term (current) drug therapy; Z87.891 Personal history of nicotine dependence; Z88.0 Allergy status to penicillin; Z91.040 Latex allergy status
CPT/HCPCS: 36415; 71046; 74177; 80048; 80053; 81001; 82150; 83605; 83690; 84484; 85025; 85610; 85730; 87086; 93005; 96361; 96374; 96375; 96376; 99285

== ENCOUNTER 2023-03-14 21:56 | Emergency (ER) | payer MEDICARE ==
[2023-03-14 23:17] VITALS: RESP 18; TEMP 97.8
--- NOTE | 2023-03-14 23:55 | ED ---
General Adult HPI - General Chief complaint: Abdominal Pain Stated complaint: pancreatitis Time Seen by Provider: 03/14/23 23:39 Source: patient Mode of arrival: ambulatory - History of Present Illness Initial comments: Dictation was produced using [employer] dictation software. please excuse any grammatical, word or spelling errors. Chief Complaint: 72-year-old male presents with abdominal pain History of Present Illness: Patient 72-year-old female presents with abdominal pain. Patient's states that around 5:30 PM she drank a cold glass of water when all of a sudden she experience lower abdominal pain. Patient had some nausea but no vomiting. States that the pain is to her inferior abdomen. She has history of pancreatitis and is worried that her pancreas is inflamed again. Denies any fever or constitutional symptoms. No diarrhea. The ROS documented in this emergency department record has been reviewed and confirmed by me. Those systems with pertinent positive or negative responses have been documented in the HPI. All other systems are other negative and/or noncontributory. - Related Data Home Medications Medication Instructions Recorded Confirmed Alendronate Sodium [Fosamax] 70 mg PO TH 06/11/22 06/11/22 Metoprolol Succinate (ER) [Toprol 50 mg PO DAILY 06/11/22 06/11/22 XL] Omeprazole 20 mg PO DAILY 06/11/22 06/11/22 Simvastatin [Zocor] 40 mg PO HS 06/11/22 06/11/22 Previous Rx's Medication Instructions Recorded Loratadine [Claritin] 10 mg PO DAILY tab 06/13/22 Ondansetron Odt [Zofran Odt] 4 mg PO Q8HR PRN 2 Days #6 tab 06/13/22 Sodium Chloride 0.65% Nasal [Deep 2 spray NASAL QID PRN ml 06/13/22 Sea (Saline)] traMADol HCl [Ultram] 50 mg PO Q6HR PRN 3 Days #12 tab 06/13/22 Allergies Allergy/AdvReac Type Severity Reaction Status Date / Time Latex, Natural Rubber Allergy Unknown Verified 03/14/23 23:17 Penicillins Allergy Rash/Hives Verified 03/14/23 23:17 Review of Systems ROS Statement: Those systems with pertinent positive or pertinent negative responses have been documented in the HPI. ROS Other: All systems not noted in ROS Statement are negative. Past Medical History Past Medical History: Hyperlipidemia, Hypertension Additional Past Medical History / Comment(s): pancreatitis History of Any Multi-Drug Resistant Organisms: None Reported Past Surgical History: Appendectomy, Orthopedic Surgery Additional Past Surgical History / Comment(s): shoulder surgerys. rt foot bunions removed Past Psychological History: No Psychological Hx Reported Smoking Status: Former smoker Past Alcohol Use History: Occasional Past Drug Use History: None Reported - Past Family History Father Family Medical History: Cancer Additional Family Medical History / Comment(s): colon ca at 65yrs Mother Additional Family Medical History / Comment(s): alzymers at age 88yrs Brother(s) Family Medical History: Cancer Additional Family Medical History / Comment(s): lung ca ,smoker. General Exam - General Exam Comments Initial Comments: PHYSICAL EXAM: General Impression: Alert and oriented x3, not in acute distress HEENT: Normocephalic atraumatic, extra-ocular movements intact, pupils equal and reactive to light bilaterally, mucous membranes moist. Cardiovascular: Heart regular rate and rhythm Chest: Able to complete full sentences, no retractions, no tachypnea Abdomen: abdomen soft, minimal palpatory tenderness to the inferior quadrants, non-distended, no organomegaly Musculoskeletal: Pulses present and equal in all extremities, no peripheral edema Motor: no focal deficits noted Neurological: CN II-XII grossly intact, no focal motor or sensory deficits noted Skin: Intact with no visualized rashes Psych: Normal affect and mood Course Vital Signs 03/14/23 03/15/23 03/15/23 23:10 00:27 01:29 Temperature 97.8 F Pulse Rate 101 H 85 82 Respiratory 18 18 18 Rate Blood Pressure 162/108 170/96 167/106 O2 Sat by Pulse 94 L 94 L 96 Oximetry 03/15/23 02:04 Temperature Pulse Rate 85 Respiratory 18 Rate Blood Pressure 160/99 O2 Sat by Pulse 97 Oximetry EKG Findings - EKG Comments: EKG Findings:: My EKG interpretation: Ventricular rate 90, sinus rhythm,. Interval 197, QRS 82, QTc 413. No AK prolongation, no QTC prolongation, no ST or T-wave changes noted. EKG compared to 06/10/2022 showing no changes. Overall, this EKG is unremarkable Medical Decision Making - Medical Decision Making Was pt. sent in by a medical professional or institution (Dr., PA, ORACLE EBS DEVELOPER, urgent care, hospital, or correction...) When possible be specific @ -No Did you speak to anyone other than the patient for history (EMS, parent, family, police, friend...)? What history was obtained from this source @ -No Did you review nursing and triage notes (agree or disagree)? Why? @ -I reviewed and agree with nursing and triage notes Were old charts reviewed (outside hosp., previous admission, EMS record, old EKG, old radiological studies, urgent care reports/EKG's, correction records)? Report findings @ -No old charts were reviewed Differential Diagnosis (chest pain, altered mental status, abdominal pain women, abdominal pain men, vaginal bleeding, musculoskeletal, weakness, fever, dyspnea, syncope, headache, dizziness, GI bleed, back pain, seizure, CVA, palpatations, mental health)? @ -Differential Abdominal Pain Women: Appendicitis, Cholecystitis, diverticulosis, ischemic bowel, pancreatitis, hepatitis, UTI, gastroenteritis, AAA, incarcerated hernia, bowel obstruction, constipation, inflammatory bowel, hepatitis, peptic ulcer disease, splenic infarction, perforated viscus, vulvitis, ovarian torsion, PID, kidney stone, placenta abruption, this is not meant to be an all-inclusive list EKG interpreted by me (3pts min.). @ -None done X-rays interpreted by me (1pt min.). @ -Abdominal x-rays unremarkable for acute processes CT interpreted by me (1pt min.). @ -None done U/S interpreted by me (1pt. min.). @ -None done What testing was considered but not performed or refused? (CT, X-rays, U/S, labs)? Why? @ -None What meds were considered but not given or refused? Why? @ -None Did you discuss the management of the patient with other professionals (yamila conley i.e. , PA, [employer] EBS DEVELOPER, lab, RT, psych nurse, healthcare social worker, cement mason helper, teacher, ship officer, case preparer and liner)? Give summary @ -No Was smoking cessation discussed for >3mins.? @ -No Was critical care preformed (if so, how long)? @ -No Were there social determinants of health that impacted care today? How? (Homelessness, low income, unemployed, alcoholism, drug addiction, transportation, low edu. Level, literacy, decrease access to med. care, correction, rehab)? @ -No Was there de-escalation of care discussed even if they declined (Discuss DNR or withdrawal of care, Hospice)? DNR status @ -No What co-morbidities impacted this encounter? (DM, HTN, Smoking, COPD, CAD, Cancer, CVA, ARF, Chemo, Hep., AIDS, mental health diagnosis, sleep apnea, morbid obesity)? @ -None Was patient admitted / discharged? Hospital course, mention meds given and route, prescriptions, significant lab abnormalities, going to OR and other pertinent info. @ -72-year-old female presents with abdominal pain. Vital signs stable. Abdominal examination is nonsurgical. Laboratory evaluation is unremarkable. Patient does have some mild white blood cells in the urine however we will await cultures to determine need for antibiotics given that patient does not have any clear urinary symptoms. Undiagnosed new problem with uncertain prognosis? @ -No Drug Therapy requiring intensive monitoring for toxicity (Heparin, Nitro, Insulin, Cardizem)? @ -No Were any procedures done? @ -No Diagnosis/symptom? Acute, or Chronic, or Acute on Chronic? Uncomplicated (without systemic symptoms) or Complicated (systemic symptoms)? @ -. Abdominal pain, no high-risk features Side effects of treatment? @ -No Exacerbation, Progression, or Severe Exacerbation? @ -No Poses a threat to life or bodily function? How? (Chest pain, [place], [place], pneumonia, PE, COPD, DKA, ARF, appy, cholecystitis, CVA, Diverticulitis, Homicidal, Suicidal, threat to staff... and all critical care pts) @ -No - Lab Data Result diagrams: 03/14/23 00:24 03/14/23 00:24 Lab Results 03/14/23 03/14/23 03/15/23 Range/Units 00:24 00:24 00:24 WBC 10.0 (3.8-10.6) k/uL RBC 4.70 (3.80-5.40) m/uL Hgb 14.5 (11.4-16.0) gm/dL Hct 43.3 (34.0-46.0) % MCV 92.2 (80.0-100.0) fL MCH 30.9 (25.0-35.0) pg MCHC 33.5 (31.0-37.0) g/dL RDW 12.3 (11.5-15.5) % Plt Count 254 (150-450) k/uL MPV 7.7 Neutrophils % 82 % Lymphocytes % 10 % Monocytes % 6 % Eosinophils % 1 % Basophils % 0 % Neutrophils # 8.2 H (1.3-7.7) k/uL Lymphocytes # 1.0 (1.0-4.8) k/uL Monocytes # 0.6 (0-1.0) k/uL Eosinophils # 0.1 (0-0.7) k/uL Basophils # 0.0 (0-0.2) k/uL Sodium 138 (137-145) mmol/L Potassium 4.1 (3.5-5.1) mmol/L Chloride 105 (98-107) mmol/L Carbon Dioxide 24 (22-30) mmol/L Anion Gap 9 mmol/L BUN 17 (7-17) mg/dL Creatinine 0.56 (0.52-1.04) mg/dL Est GFR (CKD-EPI)AfAm >90 (>60 ml/min/1.73 sqM) Est GFR (CKD-EPI)NonAf >90 (>60 ml/min/1.73 sqM) Glucose 193 H (74-99) mg/dL Calcium 9.0 (8.4-10.2) mg/dL Total Bilirubin 0.8 (0.2-1.3) mg/dL AST 28 (14-36) U/L ALT 18 (4-34) U/L Alkaline Phosphatase 60 (38-126) U/L Total Protein 7.6 (6.3-8.2) g/dL Albumin 4.7 (3.5-5.0) g/dL Lipase 131 (23-300) U/L Urine Color Yellow Urine Appearance Cloudy H (Clear) Urine pH 5.5 (5.0-8.0) Ur Specific [place] 1.023 (1.001-1.035) Urine Protein 1+ H (Negative) Urine Glucose (UA) 1+ H (Negative) Urine Ketones 1+ H (Negative) Urine Blood Trace H (Negative) Urine Nitrite Negative (Negative) Urine Bilirubin Negative (Negative) Urine Urobilinogen <2.0 (<2.0) mg/dL Ur Leukocyte Esterase Small H (Negative) Urine RBC 9 H (0-5) /hpf Urine WBC 8 H (0-5) /hpf Ur Squamous Epith Cells 1 (0-4) /hpf Urine Bacteria Moderate H (None) /hpf Hyaline Casts 1 (0-2) /lpf Urine Mucus Occasional H (None) /hpf Disposition Clinical Impression: Abdominal pain Disposition: HOME SELF-CARE Condition: Good Instructions (If sedation given, give patient instructions): Abdominal Pain (ED) Is patient prescribed a controlled substance at d/c from ED?: No Referrals: Tiffany Werner MD [Primary Care Provider] - 1-2 days Time of Disposition: 03:21
[2023-03-15 00:53] LABS: Basophils % (A) 0 %; Eosinophils # (A) 0.1 k/uL (0-0.7); Eosinophils % (A) 1 %; HCT 43.3 % (34.0-46.0); HGB 14.5 gm/dL (11.4-16.0); Lymphocytes % (A) 10 %; MCH 30.9 pg (25.0-35.0); MCHC 33.5 g/dL (31.0-37.0); MCV 92.2 fL (80.0-100.0); Mean Platelet Volume 7.7; Monocytes # (A) 0.6 k/uL (0-1.0); Monocytes % (A) 6 %; Neutrophils # (A) 8.2 k/uL (1.3-7.7); Neutrophils % (A) 82 %; Platelet Count 254 k/uL (150-450); RDW 12.3 % (11.5-15.5)
[2023-03-15 00:54] LABS: ALT 18 U/L (4-34); AST 28 U/L (14-36); African American GFR (CKD) >90 (>60 ml/min/1.73 sqM); Albumin 4.7 g/dL (3.5-5.0); Alkaline Phosphatase 60 U/L (38-126); Anion Gap 9 mmol/L; Blood Urea Nitrogen 17 mg/dL (7-17); Carbon Dioxide 24 mmol/L (22-30); Chloride 105 mmol/L (98-107); Glucose 193 mg/dL (74-99); Lipase 131 U/L (23-300); Non-African American GFR(CKD) >90 (>60 ml/min/1.73 sqM); Potassium 4.1 mmol/L (3.5-5.1); Sodium 138 mmol/L (137-145); Total Bilirubin 0.8 mg/dL (0.2-1.3); Total Protein 7.6 g/dL (6.3-8.2)
[2023-03-15 01:06] LABS: Appearance,Urine Cloudy (Clear); Bacteria,Urine Moderate /hpf; Bilirubin,Urine Negative (Negative); Blood,Urine Trace (Negative); Color,Urine Yellow; Glucose,Urine (UA) 1+ (Negative); Hyaline Casts,Urine 1 /lpf (0-2); Ketones,Urine 1+ (Negative); Leukocyte Esterase,Urine Small (Negative); Mucus,Urine Occasional /hpf; Nitrite,Urine Negative (Negative); PH, Urine 5.5 (5.0-8.0); Protein,Urine 1+ (Negative); RBC,Urine 9 /hpf (0-5); Specific Gravity,Urine 1.023 (1.001-1.035); Squamous Epithelial Cell,Urine 1 /hpf (0-4); Urobilinogen,Urine <2.0 mg/dL (<2.0); WBC,Urine 8 /hpf (0-5)
[2023-03-15 02:06] VITALS: BP 160/99; PULSE 85
--- NOTE | 2023-03-15 03:10 | XR ---
EXAM: XR Abdomen, 2 Views CLINICAL HISTORY: ITS.REASON XR Reason: abdominal pain TECHNIQUE: Frontal view of the abdomen/pelvis with upright view of the abdomen. COMPARISON: No previous studies. FINDINGS: Lower thorax: Cardiomegaly. Intraperitoneal space: No free air. Gastrointestinal tract: Nonspecific bowel gas pattern. No dilation. Organs: Unremarkable as visualized. No radiopaque renal calculi. Bones/joints: Osteopenia. Moderate to severe degenerative disc disease of the lumbar spine and dextro spaces. Other findings: Moderate to large quantity of stool. IMPRESSION: 1. Consider mild constipation. 2. Nonspecific bowel gas pattern. 3. Cardiomegaly.
== END 2023-03-15 03:23 | disposition home or self-care (01) ==
LOC: EC 21:56
DX: R10.9 Unspecified abdominal pain (principal); E78.5 Hyperlipidemia, unspecified; I10 Essential (primary) hypertension; Z87.891 Personal history of nicotine dependence; Z88.0 Allergy status to penicillin; Z91.040 Latex allergy status; Z79.899 Other long term (current) drug therapy
CPT/HCPCS: 36415; 74018; 80053; 81001; 83690; 85025; 93005; 99284

== ENCOUNTER → 2023-08-07 | Outpatient (CLI) | payer MEDICARE ==
[2023-08-07 11:42] LABS: African American GFR (CKD) >90 (>60 ml/min/1.73 sqM); Blood Urea Nitrogen 16 mg/dL (7-17); Non-African American GFR(CKD) >90 (>60 ml/min/1.73 sqM)
--- NOTE | 2023-08-07 13:32 | CT ---
EXAMINATION TYPE: CT abdomen pelvis w con DATE OF EXAM: 08/07/2023 COMPARISON: 06/10/2022 INDICATION: abdominal pain, diarrhea, blood in stool. hx of pancreatitis. DLP: 1316.20 mGycm, Automated exposure control for dose reduction was used. CONTRAST: 100 mL of Isovue 300. Study performed with Oral Contrast TECHNIQUE: Axial images were obtained from above the diaphragm to the pubic rami in the axial plane a t 5 mm thick sections. Reconstructed images are reviewed on the computer in the coronal plane. FINDINGS: Limited CT sections are obtained the lung bases. The lung bases are clear. CT ABDOMEN: Liver: Normal Spleen: Normal Pancreas: Normal Adrenal glands: The adrenal glands are normal. Gallbladder: Normal Kidneys: No masses are evident. No hydronephrosis is present. Couple of tiny cortical renal cysts p resent within the left mid to upper kidney. Delayed images were obtained through the kidneys, which remain unremarkable. Aorta: Vascular calcification is within the aorta. Inferior vena cava: Normal. CT PELVIS: Loops of bowel within the abdomen and pelvis are normal. There are loops of bowel incomplete dist ention or lacking oral contrast limiting their evaluation. Mild diverticulosis without acute divertic ulitis in the sigmoid colon. Appendix: Not identified. No dilated tubular structure or inflammatory change is evident. Urinary bladder: Normal. Genitourinary structures: Uterus is normal. Adnexa are unremarkable Osseous structures: No suspicious lytic or sclerotic lesions. IMPRESSION: 1. Diverticulosis without acute diverticulitis.
== END | disposition home or self-care (01) ==
LOC: RADCTMAIN 10:57
PROVIDERS: ATTEND Internal Medicine Gastroenterology
DX: K57.30 Diverticulosis of large intestine without perforation or abscess without bleeding (principal); K92.1 Melena; R10.9 Unspecified abdominal pain; Z87.19 Personal history of other diseases of the digestive system
CPT/HCPCS: 82565; 84520; 74177; 36415; Q9967